=== PATIENT | female | born 1995 | race American Indian/Alaskan Native ===

== ENCOUNTER 2021-08-02 20:47 | Emergency (ER) | payer OTHER ==
[2021-08-02 20:51] VITALS: BP 123/77
[2021-08-02] MEDS ORDERED: IBUPROFEN 800 MG TAB PO STA (21:37)
[2021-08-02] MEDS ORDERED: ACETAMINOPHEN 500 MG TAB PO STA (21:37)
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
[2021-08-02] MEDS ORDERED: DEXAMETHASONE 4 MG TAB PO ONE (23:51)
== END 2021-08-03 00:31 | disposition home or self-care (01) ==
LOC: ED 20:47
DX: R52 Pain, unspecified (principal); R51.9 Headache, unspecified; V49.59XA Passenger injured in collision with other motor vehicles in traffic accident, initial encounter; X58.XXXA Exposure to other specified factors, initial encounter; Y93.89 Activity, other specified; Y92.89 Other specified places as the place of occurrence of the external cause; Y99.8 Other external cause status
CPT/HCPCS: 72100; 73564; 99284; J8540